=== PATIENT | male | born 1980 | race Caucasian/White ===

== ENCOUNTER 2018-10-16 10:49 | Day surgery (SDC) | payer OTHER ==
[~2018-10-16] VITALS: Ht 185.4 cm; Wt 113.4 kg
--- NOTE | 2018-10-16 10:56 | ED Lower Extremity ---
General Chief Complaint: Lower Extremity Stated Complaint: LEG PAIN Source: patient, EMS Exam Limitations: no limitations History of Present Illness Date Seen by Provider: Oct 16, 2018 Time Seen by Provider: 10:54 Initial Comments To ER per EMS with reports of left ankle pain. This began just prior to arrival while at work, he stepped into a hole and had immediate pain. No other injury. Onset: just prior to arrival Severity: moderate Pain/Injury Location: left ankle Method of Injury: fell Modifying Factors: Worse With Movement Allergies and Home Medications Allergies Coded Allergies: No Known Drug Allergies (Unverified , 10/16/18) Patient Home Medication List Home Medication List Reviewed: Yes Review of Systems Constitutional: see HPI EENTM: see HPI Respiratory: no symptoms reported Cardiovascular: no symptoms reported Genitourinary: no symptoms reported Musculoskeletal: see HPI Skin: no symptoms reported Psychiatric/Neurological: No Symptoms Reported Past Zhaqzbw-Tjmqea-Erdumw Hx Patient Social History Alcohol Use: Denies Use Recreational Drug Use: No Smoking Status: Never a Smoker Recent Hopitalizations: No Seasonal Allergies Seasonal Allergies: No Past Medical History Surgeries: No Respiratory: No Cardiac: No Neurological: No Genitourinary: No Gastrointestinal: No Musculoskeletal: No Endocrine: No HEENT: No Cancer: No Psychosocial: No Integumentary: No Blood Disorders: No Physical Exam Vital Signs Vital Signs - First Documented 10/16/18 10:51 Temp 98.7 Pulse 72 Resp 18 B/P (MAP) 131/75 (93) Pulse Ox 96 O2 Delivery Room Air Capillary Refill : Height, Weight, BMI Height: '" Weight: lbs. oz. kg; BMI Method: General Appearance: WD/WN, no apparent distress HEENT: PERRL/EOMI, normal ENT inspection Neck: non-tender, full range of motion Respiratory: no respiratory distress, no accessory muscle use Hips: bilateral hip non-tender, bilateral hip normal inspection, bilateral hip normal range of motion Legs: bilateral leg non-tender, bilateral leg normal inspection, bilateral leg normal range of motion Knees: bilateral knee non-tender, bilateral knee normal inspection, bilateral knee normal range of motion Ankles: left ankle deformity, left ankle limited range of motion, left ankle other Feet: bilateral foot non-tender, bilateral foot normal inspection, bilateral foot normal range of motion Neurologic/Tendon: normal sensation, normal motor functions Neurologic/Psychiatric: alert, normal mood/affect, oriented x 3 Skin: normal color, warm/dry Progress/Results/Core Measures Results/Orders My Orders Orders - SAMY DUPREE APRN Iv Heplock-Insert (Order) (10/16/18 10:53) Tibia/Fibula, Left, 2 Views (10/16/18 10:53) Fentanyl Injection (Sublimaze Injection (10/16/18 11:00) Ankle, Left, 2 Views (10/16/18 11:07) Ns Iv 1000 Ml (Sodium Chloride 0.9%) (10/16/18 11:45) Etomidate Injection (Amidate Injection) (10/16/18 11:45) Ankle, Left, 3 Views (10/16/18 11:46) Lorazepam Injection (Ativan Injection) (10/16/18 12:15) Medications Given in ED Current Medications Medications Dose Ordered Sig/Mckenzie Route Start Time Stop Time Status Last Admin Dose Admin Etomidate 20 mg ONCE ONCE IV 10/16/18 11:45 10/16/18 11:46 DC 10/16/18 11:55 20 MG Fentanyl Citrate 50 mcg ONCE ONCE IVP 10/16/18 11:00 10/16/18 11:01 DC 10/16/18 11:13 50 MCG Vital Signs/I&O 10/16/18 10:51 Temp 98.7 Pulse 72 Resp 18 B/P (MAP) 131/75 (93) Pulse Ox 96 O2 Delivery Room Air Diagnostic Imaging Diagonstic Imaging: Xray Plain Films/CT/US/NM/MRI: ankle Comments NAME: JOSE RODRIGUEZ [facility] REC#: [id number] PT STATUS: REG ER : 1980 PHYSICIAN: SAMY DUPREE APRN ADMIT DATE: 10/16/18/ER Signed Date of Exam:10/16/18 TIBIA/FIBULA, LEFT, 2 VIEWS Clinical indication: Patient stepped into a hole and felt a pop. Patient has left ankle pain. Exams: 1: X-ray of the left ankle, 2 views. 2: X-ray of the left tibia and fibula, 4 views. Comparison: None. Findings: There is a comminuted and displaced fracture of the distal fibular diaphysis which demonstrates roughly 3 mm of lateral displacement and 11 mm of posterior displacement of distal fracture fragment. There is roughly 6 mm of distraction of the main fracture parts involving the distal fibula. There is dislocation of the tibial talar joint with the tibia displaced medially and anteriorly. The syndesmotic joint is widened by roughly 6 mm. There is no other fracture in the region of the ankle seen. There is soft tissue swelling adjacent to the ankle. The remainder of the tibia and fibula are intact. The visualized portions of the left knee shows no significant abnormality. The hindfoot bone structures are otherwise unremarkable. Impression: 1: There is a comminuted and displaced fracture of the distal fibular diaphysis. 2: There is dislocation of the tibiotalar joint with the tibia displaced anteriorly and medially with concern for abnormal widening/injury of the syndesmosis. 3: There is soft tissue swelling about the ankle. Dictated by: Dictated on workstation # [id number] Dict: 10/16/18 1158 Trans: 10/16/18 1204 [id number] Interpreted by: DEJA SHARPE MD Electronically signed by: DEJA SHARPE MD 10/16/18 1204 Departure Communication (Admissions) I spoke with Dr. Webb. He will take this to the operating room at about 4 PM today. He would like this reduced in the interim and splinted. We did use 20 mg of etomidate for conscious sedation. We then reduced the dislocation and splinted with a posterior short leg and stirrup style splint. He maintained brisk capillary refill of the toes after splinting/reduction. He did become very anxious afterwards so we ordered a milligram of Ativan IV. Impression Primary Impression: Fracture dislocation of left ankle Disposition: 01 HOME, SELF-CARE Condition: Stable ( 3) SAMY DUPREE ROVING DEPARTMENT SUPERVISOR Oct 16, 2018 10:56
[2018-10-16] MEDS ORDERED: fentaNYL INJECTION 100 MCG/2 ML AMP IVP ONE ×2 (11:00→14:00)
[2018-10-16] MEDS ORDERED: NS IV 1000 ML 1,000 ML IV SCH (11:45)
[2018-10-16] MEDS ORDERED: ETOMIDATE IV SOLN 20 MG/10 ML VIAL IV ONE (11:45)
--- NOTE | 2018-10-16 12:06 | Diagnostic Imaging Report ---
Clinical indication: Patient stepped into a hole and felt a pop. Patient has left ankle pain. Exams: 1: X-ray of the left ankle, 2 views. 2: X-ray of the left tibia and fibula, 4 views. Comparison: None. Findings: There is a comminuted and displaced fracture of the distal fibular diaphysis which demonstrates roughly 3 mm of lateral displacement and 11 mm of posterior displacement of distal fracture fragment. There is roughly 6 mm of distraction of the main fracture parts involving the distal fibula. There is dislocation of the tibial talar joint with the tibia displaced medially and anteriorly. The syndesmotic joint is widened by roughly 6 mm. There is no other fracture in the region of the ankle seen. There is soft tissue swelling adjacent to the ankle. The remainder of the tibia and fibula are intact. The visualized portions of the left knee shows no significant abnormality. The hindfoot bone structures are otherwise unremarkable. Impression: 1: There is a comminuted and displaced fracture of the distal fibular diaphysis. 2: There is dislocation of the tibiotalar joint with the tibia displaced anteriorly and medially with concern for abnormal widening/injury of the syndesmosis. 3: There is soft tissue swelling about the ankle. Dictated by: Dictated on workstation # [id number]
[2018-10-16] MEDS ORDERED: LORazepam INJ 2 MG/ML (ATIVAN) VIAL ONE (12:10)
[2018-10-16] MEDS ORDERED: LORazepam INJ 2 MG/ML (ATIVAN) VIAL IVP PRN (12:15)
[2018-10-16] MEDS ORDERED: LACTATED RINGERS 1,000 ML IV PRN (12:42)
--- NOTE | 2018-10-16 12:47 | Diagnostic Imaging Report ---
INDICATION: Left ankle pain. AP, oblique, and lateral views of the left ankle are obtained. Exam done at 12:24 p.m. and is compared to 11:09 a.m. on the same day. FINDINGS: Overlying cast is now in place. There is improved alignment of the distal fibular comminuted fracture, above the ankle joint level. On the AP view, there appears to be some widening of the medial portion of the ankle joint; this has improved but not resolved compared to the prior study. IMPRESSION: Improved alignment of the comminuted distal fibular shaft fracture compared to the previous study. There is widening of the medial portion of the ankle joint which has improved but not resolved compared to the prior study. Dictated by: Dictated on workstation # [id number]
[2018-10-16 12:55] LABS: BASOPHILS % (AUTO) 0 % (0-10); EOSINOPHILS % (AUTO) 0 % (0-10); HEMATOCRIT 46 % (40-54); HEMOGLOBIN 15.8 G/DL (13.3-17.7); LYMPHOCYTES % (AUTO) 10 % (12-44); MEAN CORPUSCULAR HEMOGLOBIN 30 PG (25-34); MEAN CORPUSCULAR HGB CONC 34 G/DL (32-36); MEAN CORPUSCULAR VOLUME 87 FL (80-99); MEAN PLATELET VOLUME 10.9 FL (7.4-10.4); MONOCYTES # (AUTO) 0.5 X 10^3 (0.0-1.0); MONOCYTES % (AUTO) 5 % (0-12); NEUTROPHILS % (AUTO) 84 % (42-75); PLATELET COUNT 190 10^3/uL (130-400); RED BLOOD COUNT 5.32 10^6/uL (4.35-5.85); RED CELL DISTRIBUTION WIDTH 12.6 % (10.0-14.5); WHITE BLOOD COUNT 9.5 10^3/uL (4.3-11.0)
[2018-10-16 13:05] VITALS: BP 144/76
[2018-10-16 13:10] LABS: PROTHROMBIN TIME PATIENT 13.5 SEC (12.2-14.7)
[2018-10-16 13:15] LABS: ALANINE AMINOTRANSFERASE 37 U/L (0-55); ALBUMIN 4.1 GM/DL (3.2-4.5); ALKALINE PHOSPHATASE 74 U/L (40-136); BILIRUBIN,TOTAL 1.6 MG/DL (0.1-1.0); BUN/CREATININE RATIO 20; CARBON DIOXIDE 22 MMOL/L (21-32); CHLORIDE 108 MMOL/L (98-107); CREATININE SERUM 1.12 MG/DL (0.60-1.30); GFR ESTIMATED > 60; GLUCOSE 95 MG/DL (70-105); POTASSIUM 4.5 MMOL/L (3.6-5.0); SODIUM 140 MMOL/L (135-145); TOTAL PROTEIN 6.7 GM/DL (6.4-8.2)
[2018-10-16] MEDS: LACTATED RINGERS 1,000 ML IV PRN ×3 (13:31→18:20)
[2018-10-16] MEDS ORDERED: LACTATED RINGERS 0 ML IV ONE (13:39)
[2018-10-16] MEDS ORDERED: proPOfol 200 MG/20 ML (DIPRIVAN) VIAL IV ONE (13:39)
[2018-10-16] MEDS ORDERED: fentaNYL INJECTION 100 MCG/2 ML AMP ONE ×2 (13:39→17:56)
[2018-10-16] MEDS ORDERED: MIDAZOLAM 2 MG/2 ML (VERSED) VIAL ONE (13:39)
[2018-10-16] MEDS ORDERED: ONDANSETRON 4 MG/2 ML (SDV) Z0FRAN ONE (13:39)
[2018-10-16] MEDS ORDERED: LIDOCAINE PF 2% 5 ML (XYLOCAINE) VIAL ONE (13:39)
[2018-10-16] MEDS ORDERED: SEVOFLURANE (ULTANE) 15 ML INHAL SOLN ONE ×3 (13:41→18:23)
[2018-10-16] MEDS ORDERED: DEXAMETHASONE 10 MG/ML (DECADRON) 1 ML VIAL ONE (13:41)
--- NOTE | 2018-10-16 14:15 | Consultation ---
History of Present Illness History of Present Illness Patient Consulted On(hoa/time) 10/16/18 14:11 Time Seen by Provider: 14:11 Reason for Visit: Ankle Fracture History of Present Illness 38 y/o white male, fell in hole and injured his left ankle at work today. He denies any other injuries at this point. Allergies and Home Medications Allergies Coded Allergies: No Known Drug Allergies (Unverified , 10/16/18) Patient Home Medication List Home Medication List Reviewed: Yes Past Vnepwed-Foagzt-Iwbldg Hx Patient Social History Alcohol Use: Occasionally Uses Number of Drinks Today: 0 Alcohol Beverage of Choice: Beer Recreational Drug Use: No Smoking Status: Never a Smoker Recent Foreign Travel: No Contact w/Someone Who Travel: No Recent Infectious Disease Expo: No Recent Hopitalizations: No Physical Abuse: No Sexual Abuse: No Mistreated: No Fear: No Seasonal Allergies Seasonal Allergies: Yes Past Medical History Surgeries: No Eye Surgery Respiratory: No Cardiac: No Neurological: No Reproductive Disorders: No Genitourinary: No Gastrointestinal: No Musculoskeletal: No Chronic Back Pain Endocrine: No HEENT: No Cancer: No Psychosocial: No Integumentary: No Blood Disorders: No Review of Systems-General Constitutional: no symptoms reported EENTM: no symptoms reported Respiratory: no symptoms reported Cardiovascular: no symptoms reported Gastrointestinal: no symptoms reported Genitourinary: no symptoms reported Musculoskeletal: joint pain, joint swelling Skin: no symptoms reported Psychiatric/Neurological: No Symptoms Reported Physical Exam-General Problems Physical Exam Vital Signs Vital Signs - First Documented 10/16/18 10:51 Temp 98.7 Pulse 72 Resp 18 B/P (MAP) 131/75 (93) Pulse Ox 96 O2 Delivery Room Air Capillary Refill : Less Than 3 Seconds General Appearance: mild distress Eyes: Bilateral Eye Normal Inspection HEENT: normal ENT inspection Neck: supple Respiratory: no respiratory distress, no accessory muscle use Cardiovascular: normal peripheral pulses, regular rate, rhythm Gastrointestinal: normal bowel sounds Back: normal inspection Extremities: swelling, other (deformity and swelling, splint on left ankle) Neurologic/Psychiatric: no motor/sensory deficits Skin: other (Intact) Comments Xrays show displaced, Burgos C ankle fracture, with syndesmosis disruption, and widening of medial clear space and deltoid ligament injury. Assessment/Plan Assessment/Plan Admission Diagnosis/Plan Left, Closed Distal Fibula fracture, syndesmosis and deltoid ligament disruption. Plan: ORIF of Left ankle MICHAEL QUINTANA MD Oct 16, 2018 2:15 pm
--- NOTE | 2018-10-16 14:39 | Physical Therapy Progress Note ---
Therapy Progress Note PT in for gait training/crutch training preop per Dr. Webb's order. CAM boot issued and Crutches sized for patient at 6'. Spouse present. Patient recently had pain medication and declined OOB activity secondary to left foot pain. PT Educated patient and spouse on proper crutch use and stair climbing with crutches secondary to patient will be NWB left LE after surgery. Patient reports he has utilized crutches and understands proper use. Spouse voices understanding as well. 1 visit Education 17 min ([id number]) EMILIA ELLIOTT PT Oct 16, 2018 14:39
[2018-10-16] MEDS ORDERED: HYDR-4227 PO (16:58)
[2018-10-16] MEDS ORDERED: OXYC-464 PO (17:01)
[2018-10-16] MEDS ORDERED: BUP/EPI 0.5% 1:200,000 (SENSORCAINE) 30 ML VIAL ONE (17:04)
[2018-10-16] MEDS ORDERED: GENTAMICIN 40 MG/ML 2 ML INJ SDV ONE (17:04)
[2018-10-16] MEDS: ceFAZolin 2 GM IV Premixed 50 ML ONE ×3 (17:24→18:38)
[2018-10-16] MEDS: ceFAZolin 2 GM IV Premixed 50 ML IV ONE ×2 (17:24→17:26)
[2018-10-16] MEDS ORDERED: CEPH-507 PO (18:33)
--- NOTE | 2018-10-16 18:36 | Progress Note-Post Operative ---
Post-Operative Progess Note Surgeon (s)/Bindery Leadperson (s) Surgeon MICHAEL QUINTANA MD Bindery Leadperson: Rambo Oconnor, PAC Pre-Operative Diagnosis LEFT ANKLE FRACTURE Post-Operative Diagnosis Same, Closed Procedure & Operative Findings Date of Procedure 10/16/18 Procedure Performed/Findings ORIF distal fibula fx and syndesmosis Left Anesthesia Type LMA Estimated Blood Loss Estimated blood loss (mL): Min Specimens/Packing Specimens Removed None MICHAEL QUINTANA MD Oct 16, 2018 6:36 pm
--- NOTE | 2018-10-16 18:38 | Diagnostic Imaging Report ---
INDICATION: ORIF. COMPARISON: Earlier the same day FINDINGS: Multiple intraoperative image intensifier views of the left ankle were obtained during ORIF. Images provided show placement of 2 syndesmotic screws within the distal tibia and fibula. 3 separate screws are also identified within the distal fibular shaft more superiorly. As a result, there is improvement of the tibiotalar joint space. Please note, interpreting radiologist was not present during the procedure. Total fluoroscopy time is 15 seconds. IMPRESSION: 1. Fluoroscopic guidance provided during ORIF as described above. Dictated by: Dictated on workstation # [id number]
[2018-10-16] MEDS ORDERED: MEPERIDINE (DEMEROL) INJ 50 MG/ML IVP ONE (18:45)
[2018-10-16] MEDS ORDERED: ONDANSETRON 4 MG/2 ML (SDV) Z0FRAN IVP PRN (18:45)
[2018-10-16] MEDS ORDERED: morphine INJ 10 MG/ML 1ML (SYR OR VIAL) IVP ONE (18:45)
[2018-10-16 19:22] VITALS: BP 132/62
[2018-10-16] MEDS ORDERED: oxyCODONE/APAP 5/325MG (PERCOCET 5) TABLET ONE (19:42)
[2018-10-16] MEDS ORDERED: LORazepam 1 MG (ATIVAN) TAB ONE (19:43)
[2018-10-16] MEDS ORDERED: LORazepam 1 MG (ATIVAN) TAB PO ONE (19:45)
[2018-10-16] MEDS ORDERED: oxyCODONE/APAP 5/325MG (PERCOCET 5) TABLET PO ONE (19:45)
--- OUTSIDE RECORDS SUMMARY | 2018-10-17 00:43 | XMS REPORT | Continuity of Care Document ---
Author Author [facility] Organization [facility] Address Unknown Phone Unavailable Allergies There is no data. Medications There is no data. Problems There is no data. Procedures There is no data. Results There is no data. Encounters ACCT No. Visit Date/Time Discharge Status Pt. Type Provider Facility Loc./Unit Complaint [id number] 12/11/2014 10:26:00 12/11/2014 23:59:59 [facility] Outpatient ALEKSEY CASTANEDA [id number] 12/24/2014 11:59:27 ACT Document Registration
--- OUTSIDE RECORDS SUMMARY | 2018-10-17 03:18 | XMS REPORT | Continuity of Care Document ---
Author Author [facility] Organization [facility] Address Unknown Phone Unavailable Allergies There is no data. Medications There is no data. Problems There is no data. Procedures There is no data. Results There is no data. Encounters ACCT No. Visit Date/Time Discharge Status Pt. Type Provider Facility Loc./Unit Complaint [id number] 12/11/2014 10:26:00 12/11/2014 23:59:[address] [facility] Outpatient ALEKSEY CASTANEDA [id number] 12/24/2014 11:59:27 ACT Document Registration
--- NOTE | 2018-10-17 05:52 | OPERATIVE REPORT ---
DATE OF SERVICE: 10/16/2018 PREOPERATIVE DIAGNOSES: Left closed displaced Burgos type C distal fibula fracture with syndesmosis injury, deltoid ligament disruption and bimalleolar equivalent ankle fracture. POSTOPERATIVE DIAGNOSES: Left closed displaced Burgos type C distal fibula fracture with syndesmosis injury, deltoid ligament disruption and bimalleolar equivalent ankle fracture. PROCEDURE PERFORMED: Open reduction and internal fixation of distal fibular fracture and repair of syndesmosis. DATE AND TIME OF SURGERY: Please see anesthesia record. IMPLANTS USED: Patrice ankle solution small fragment set. SURGEON: Michael Webb MD FRAME SAMPLE AND PATTERN SUPERVISOR: MARIANELA Schroeder ROLE OF FAMILY RESOURCE MANAGEMENT SPECIALIST: Aid in retraction of the procedure, aid in fracture reduction and wound closure. ANESTHESIA: General endotracheal. ESTIMATED BLOOD LOSS: Minimal. INTRAVENOUS FLUIDS: Please see anesthesia record. ANTIBIOTICS: Ancef. COMPLICATIONS: None. TOURNIQUET TIME: 38 minutes. INDICATIONS FOR PROCEDURE: The patient is a 38-year-old male fell on a job, injuring his left ankle, significant fracture displacement was seen. Risks, benefits, alternatives were discussed, and they elected to proceed with operative intervention. DESCRIPTION OF PROCEDURE: The patient was taken to the preoperative holding area and brought back to the operative suite. After adequate induction of general anesthesia and preoperative antibiotics, placed supine and prep performed, tourniquet was raised, attention was directed to the lateral aspect of the ankle where under fluoroscopic guidance a direct incision down to the fracture site and distal fibula was performed. Fracture was cleaned out, reduced anatomically with a lobster claw clamp and then three interfragmentary 3.5 screws were placed to hold the fracture reduced. At this point, attention was directed to the distal fibula, where through a 2-hole plate, two distal 4.0 partially-threaded cancellous screws were placed across the syndesmosis after it was fully and adequately reduced under fluoroscopic guidance. Screws were placed. Final tightening was performed to hold the syndesmosis reduced. Hemostasis was assured. Wound was copiously irrigated, closed in layers. Dressing was applied. A Cam boot was placed. The patient transferred to recovery room in stable condition, having tolerated the procedure well. Job ID: [id number] DocumentID: [id number] Dictated Date: 10/16/2018 18:38:56 Morning Show Producer Date: 10/17/2018 02:37:32 Dictated By: MICHAEL WEBB MD MTDD
--- NOTE | 2018-10-17 07:05 | Anesthesia-General Post-Op ---
General Patient Condition Mental Status/LOC: Same as Preop Cardiovascular: Satisfactory Nausea/Vomiting: Absent Respiratory: Satisfactory Pain: Controlled Complications: Absent Post Op Complications Complications None Follow Up Care/Instructions Patient Instructions None needed. Anesthesia/Patient Condition Patient Condition Patient is doing well, no complaints, stable vital signs, no apparent adverse anesthesia problems. No complications reported per nursing. D/C home per [facility] [place] Criteria: Yes PORSHA OVALLE CRNA Oct 17, 2018 07:05
== END 2018-10-16 20:50 | disposition home or self-care (01) ==
LOC: EDUNIT# 10:49 → ER 10:50 → SDC 12:47
PROVIDERS: ATTEND Orthopaedic Surgery Orthopaedic Surgery of the Spine
DX: S82.832A Other fracture of upper and lower end of left fibula, initial encounter for closed fracture (principal); S93.05XA Dislocation of left ankle joint, initial encounter; F41.9 Anxiety disorder, unspecified; W17.2XXA Fall into hole, initial encounter; Y99.0 Civilian activity done for income or pay
CPT/HCPCS: 36415; 73590; 73600; 73610; 80053; 85025; 85610; 87081; 93041; 96361; 96374; 96375

== ENCOUNTER → 2019-02-02 | Outpatient (CLI) | payer OTHER ==
[~2019-02-02] MED LIST: CEPH-507 PO; HYDR-4227 PO; OXYC-464 PO
--- NOTE | 2019-02-02 10:02 | Diagnostic Imaging Report ---
PROCEDURE: US Hepatic (Liver). TECHNIQUE: Multiple real-time grayscale images were obtained over the right upper quadrant in various projections. INDICATION: Elevated liver function tests. FINDINGS: The liver is upper limits of normal in size at 17.8 cm. Liver does show increased echogenicity consistent with hepatic steatosis. No discrete liver mass is identified. The portal vein is patent and shows normal direction of flow. Gallbladder is without stones or sludge. No wall thickening or biliary duct dilatation is seen. Pancreas is obscured by bowel gas. The right kidney is unremarkable. There is no ascites. IMPRESSION: 1. Hepatic steatosis. The study is otherwise unremarkable. Dictated by: Dictated on workstation # [id number]
== END ==
LOC: RAD 07:49
PROVIDERS: ATTEND Family Medicine
DX: K76.0 Fatty (change of) liver, not elsewhere classified (principal)
CPT/HCPCS: 76705